=== PATIENT | female | born 2000 | race Caucasian/White ===

== ENCOUNTER 2020-09-18 23:41 | Emergency (ER) | payer OTHER ==
[2020-09-18 23:46] VITALS: BP 123/62; PULSE 97; TEMP 98.7; BMI 33.5
[2020-09-19] MEDS ORDERED: ACETAMINOPHEN 325 MG TABLET (FP) PO ONE (00:53)
[2020-09-19] MEDS ORDERED: ACETAMINOPHEN 325 MG TABLET (FP) ONE (00:55)
== END 2020-09-19 02:01 | disposition home or self-care (01) ==
LOC: JER 23:41
DX: G44.319 Acute post-traumatic headache, not intractable (principal); S00.03XA Contusion of scalp, initial encounter
CPT/HCPCS: 70450-TC; 99284-25

== ENCOUNTER 2022-02-04 19:30 | Inpatient (IN) | payer OTHER ==
[2022-02-04 20:55] LABS: BASO % 0.3 % (0-2.0); EOS % 0.4 % (0-4.5); HEMATOCRIT 29.1 % (32.4-45.2); MCH 22.1 pg (25.7-33.7); MEAN CELL VOLUME 71.4 fl (80-96); MEAN PLT VOLUME 9.5 fl (7.5-11.1); MONO % 5.7 % (3.8-10.2); NEUT % 82.6 % (42.8-82.8); PLATELET COUNT 180 10^3/uL (134-434); RBC 4.08 M/mm3 (3.60-5.2); RDW 16.4 % (11.6-15.6); WHITE BLOOD COUNT 14.1 K/mm3 (4.0-10.0)
[2022-02-04] MEDS: ELECTROLYTE-148 SOLN 1,000 ML IV SCH (21:00)
[2022-02-04 21:07] LABS: INR 0.86 (0.83-1.09); PROTHROMBIN TIME (PATIENT) 9.9 SEC (9.7-13.0)
[2022-02-04 21:10] LABS: ACTIVATED PTT 26.7 SECONDS (25.2-36.5)
[2022-02-04] MEDS ORDERED: DINOPROSTONE 10 MG VAGINAL SUPPOSITORY VG ONE (21:12)
[2022-02-04 21:15] LABS: ALBUMIN 1.9 g/dl (3.4-5.0); CALCIUM 8.2 mg/dL (8.5-10.1)
[2022-02-04 21:16] LABS: BLOOD UREA NITROGEN 12.9 mg/dL (7-18)
[2022-02-04 21:18] LABS: CREATININE 0.7 mg/dL (0.55-1.3)
[2022-02-04 21:20] LABS: BILIRUBIN,TOTAL 0.2 mg/dL (0.2-1); TOT PROT 5.5 g/dl (6.4-8.2)
[2022-02-04 21:29] LABS: RETICULOCYTES 2.71 % (0.5-1.5)
[2022-02-04 21:32] LABS: URIC ACID 5.3 mg/dL (2.6-7.2)
[2022-02-04] MEDS ORDERED: PROMETHAZINE HCL 25 MG/1 ML VIAL IVPB ONE (21:43)
[2022-02-04] MEDS ORDERED: BUTORPHANOL TARTRATE 1 MG/ML VIAL IVPB ONE (21:45)
[2022-02-04 22:11] LABS: HIV INTERPRETATION NEGATIVE (NEGATIVE)
[2022-02-04 23:46] VITALS: BMI 40.7
[2022-02-05] MEDS ORDERED: OXYTOCIN 30 UNITS in 0.9% NS 30 UNIT/500 ML INFUS.BAG IVPB SCH (10:00)
[2022-02-05] MEDS ORDERED: OXYTOCIN 30 UNITS in 0.9% NS 30 UNIT/500 ML INFUS.BAG IVPB ONE (10:16)
[2022-02-05] MEDS ORDERED: FENTANYL/BUPIVACAINE/NS/PF - PCEA - 50 ML DISP.SYRIN EP ONE ×4 (10:17→23:04)
[2022-02-05] MEDS ORDERED: BUPIVACAINE HCL/PF 0.25% (2.5MG/ML) 10 ML VIAL ONE (10:32)
[2022-02-05] MEDS: ELECTROLYTE-148 SOLN 1,000 ML IV SCH ×3 (11:00→21:31)
[2022-02-05] MEDS: FENTANYL/BUPIVACAINE/NS/PF - PCEA - 50 ML DISP.SYRIN EP SCH ×2 (11:00→16:00)
[2022-02-05] MEDS ORDERED: NALOXONE HCL 0.4 MG/ML VIAL IVPUSH PRN (12:40)
[2022-02-05] MEDS: OXYTOCIN 30 UNITS in 0.9% NS 30 UNIT/500 ML INFUS.BAG IVPB SCH ×2 (21:31→21:32)
[2022-02-05] MEDS ORDERED: OXYTOCIN 20 UNITS in 0.9% NS 20 UNIT/1,000 ML INFUS.BAG IV ONE (23:33)
[2022-02-06] MEDS ORDERED: AMPICILLIN SODIUM 2 GM VIAL ONE (00:03)
[2022-02-06] MEDS ORDERED: AMPICILLIN - 2 GM in SODIUM CHLORIDE 100 ML IVPB ONE ×2 (00:07→00:08)
[2022-02-06] MEDS ORDERED: BENZOCAINE 28 GM HEMORRHOIDAL OINTMENT TP PRN (01:57)
[2022-02-06] MEDS ORDERED: ACETAMINOPHEN 325 MG TABLET (FP) PO PRN (01:57)
[2022-02-06] MEDS ORDERED: BENZOCAINE 20% 57 GM BOTTLE TP PRN (01:57)
[2022-02-06] MEDS ORDERED: METHYLERGONOVINE MALEATE 0.2 MG/1 ML AMP IM PRN (01:57)
[2022-02-06] MEDS ORDERED: BISACODYL 10 MG SUPP.RECT RC PRN (01:57)
[2022-02-06] MEDS ORDERED: oxyCODONE HCL 5 MG TABLET PO PRN (01:57)
[2022-02-06] MEDS ORDERED: WITCH HAZEL 50% (TUCKS) 40 PAD/JAR PAD TP PRN (01:57)
[2022-02-06] MEDS ORDERED: OXYTOCIN 20 UNITS in 0.9% NS 20 UNIT/1,000 ML INFUS.BAG IV SCH (02:00)
[2022-02-06] MEDS ORDERED: MEASLES,MUMPS&RUBELLA VACC/PF 0.5 ML VIAL SQ ONE (02:03)
[2022-02-06] MEDS: IBUPROFEN 600 MG TABLET (FP) PO PRN (02:40)
[2022-02-06 03:58] LABS: CORD BASE EXCESS -12.7 mmol/L (0-2); CORD HCO3 17.6 mmHg (20-29); CORD PCO2 56.8 mmHg (30-78); CORD pH 7.11 (7.14-7.44)
[2022-02-06 04:01] LABS: CORD BASE EXCESS -15.6 mmol/L (0-2); CORD HCO3 17.9 mmHg (20-29); CORD PCO2 75.5 mmHg (30-78); CORD pH 6.992 (7.14-7.44)
[2022-02-07] MEDS: IBUPROFEN 600 MG TABLET (FP) PO PRN (09:11)
[2022-02-07 09:49] LABS: BASO % 0.5 % (0-2.0); EOS % 2.3 % (0-4.5); HEMATOCRIT 21.6 % (32.4-45.2); LYMPH % 17.9 % (8-40); MCHC 31.8 g/dl (32.0-36.0); MEAN CELL VOLUME 72.3 fl (80-96); MEAN PLT VOLUME 9.3 fl (7.5-11.1); MONO % 6.9 % (3.8-10.2); NEUT % 72.4 % (42.8-82.8); PLATELET COUNT 141 10^3/uL (134-434); RBC 2.98 M/mm3 (3.60-5.2); RDW 16.5 % (11.6-15.6); WHITE BLOOD COUNT 12.2 K/mm3 (4.0-10.0)
[2022-02-07 10:14] LABS: HEMOGLOBIN 6.9 GM/dL (10.7-15.3)
[2022-02-07] MEDS ORDERED: SENNOSIDES/DOCUSATE COMBO (SENNA PLUS) TABLET (UD) PO PRN (22:00)
[2022-02-08 09:33] LABS: BASO % 0.4 % (0-2.0); EOS % 2.7 % (0-4.5); HEMATOCRIT 31.8 % (32.4-45.2); HEMOGLOBIN 10.1 GM/dL (10.7-15.3); LYMPH % 20.2 % (8-40); MCH 23.9 pg (25.7-33.7); MCHC 31.7 g/dl (32.0-36.0); MEAN CELL VOLUME 75.6 fl (80-96); MEAN PLT VOLUME 9.3 fl (7.5-11.1); MONO % 4.5 % (3.8-10.2); NEUT % 72.2 % (42.8-82.8); PLATELET COUNT 206 10^3/uL (134-434); RDW 18.3 % (11.6-15.6); WHITE BLOOD COUNT 12.7 K/mm3 (4.0-10.0)
[2022-02-08 12:58] VITALS: BP 128/85; PULSE 90; RESP 17; TEMP 98.8
== END 2022-02-08 01:55 | disposition home or self-care (01) | DRG 560 ==
LOC: JLDR 19:30 → J3W 02-06 03:20
PROVIDERS: ADMIT Internal Medicine; ATTEND Internal Medicine
PROC: 10E0XZZ Delivery of Products of Conception, External Approach (ICD-10-PCS; principal; 2022-02-06)
PROC: 0U7C7ZZ Dilation of Cervix, Via Natural or Artificial Opening (ICD-10-PCS; 2022-02-06)
PROC: 0KQM0ZZ Repair Perineum Muscle, Open Approach (ICD-10-PCS; 2022-02-06)
DX: O42.92 Full-term premature rupture of membranes, unspecified as to length of time between rupture and onset of labor (principal); O70.1 Second degree perineal laceration during delivery; O90.81 Anemia of the puerperium; O99.214 Obesity complicating childbirth; E66.01 Morbid (severe) obesity due to excess calories; Z3A.39 39 weeks gestation of pregnancy; Z37.0 Single live birth
CPT/HCPCS: 36415; 36430; 36600; 59409; 80053; 82570; 82803; 82977; 83010; 84156; 84550; 85025; 85045; 85610; 85730; 86780; 86850; 86900; 86901; 86922; 87389; C9803-CS; P9058; U0003; U0005